=== PATIENT | female | born 1965 | race Two or more races ===

== ENCOUNTER 2023-10-16 11:39 | Emergency (ER) | payer OTHER ==
[~2023-10-16] VITALS: Ht 170.2 cm; Wt 72.6 kg
[2023-10-16] MEDS ORDERED: ZOLOFT20 MG/1 ML PO (13:06)
[2023-10-16 14:39] LABS: HEMATOCRIT 34.5 % (36.0-45.00); HEMOGLOBIN 12.1 g/dL (12.0-15.00); MEAN CELL VOLUME 102.5 fL (80.00-100.00); MEAN CORPUSCULAR HEMOGLOBIN 35.9 pg (27.00-32.0); PLATELET COUNT 111 K/uL (150-450); RED BLOOD COUNT 3.37 M/uL (4.00-6.00); RED CELL DISTRIBUTION WIDTH 14.8 % (11.5-14.5)
[2023-10-16 15:14] LABS: ALBUMIN 4.3 gm/dL (3.4-5.0); BILIRUBIN TOTAL 1.73 mg/dL (0.3-1.2); CALCIUM 9.3 mg/dL (8.5-10.1); CREATININE SERUM 0.63 mg/dL (0.55-1.02); GFR 97.75; GLOBULINA 3.9 G/DL (2.4-3.5); TOTAL PROTEIN 8.2 gm/dL (6.4-8.2)
[2023-10-16 15:17] LABS: POTASSIUM 2.92 mEq/L (3.5-5.1)
== END 2023-10-16 16:38 | disposition home or self-care (01) ==
LOC: ER 11:39
PROVIDERS: General Practice
DX: R56.9 Unspecified convulsions (principal); I10 Essential (primary) hypertension